=== PATIENT | male | born 1970 | race Caucasian/White ===

== ENCOUNTER 2024-01-25 03:03 | Emergency (ER) | payer OTHER, SELFPAY ==
[2024-01-25 03:06] VITALS: BP 149/91
--- NOTE | 2024-01-25 03:16 | ED.SKININJ ---
HPI-Injury
General
Chief Complaint: Skin Problem
Source: patient
Exam Limitations: none
Time Seen by Provider: 01/25/24 03:13
Nursing documentation reviewed up to this point in time: agreed with
Travel History
Have you had any contact with someone who has COVID-19?: No
Do you have any symptoms of coronavirus? Fever > 100 degrees, chills, cough, shortness of breath, sore throat, loss of taste or smell, muscle aches, or headache?: No
History of Present Illness-Injury
Initial Injury comments:
This a pleasant 53-year-old male who presents with ecchymosis on his right thigh. Patient underwent a bone graft with microvascular anastomosis by Dr. Delvalle on January 20, 2024 at [facility]. He states that he had a drain in place
which was recently removed. After the drain was removed he noticed some ecchymosis and yellowing of skin below the operation site. The operation site appears clean and intact without any evidence of cellulitis. Patient denies fever or chills. He
attempted to contact with his surgeon who was unavailable. He came to the emergency department for evaluation.
Past History
Past History
ED Past Medical History: Other (Concussion)
ED Past Surgical History: Cardiac (Cardiac catheterization 1979), Orthopedic (Cervical spine surgery 2020 right rotator cuff injury, ORIF right ankle), Urological (Right Kidney surgery to hold kidney up) and Other (Left middle finger amputation)
Social History
Tobacco: Non-smoker
Alcohol: None
Drug: None
Personal: Single
Living: alone
Employment: Not employed
Family History
Family History: Other (Noncontributory)
Phy Exam
General Physical Exam
General Presentation: well appearing
General age: appears stated age
General Skin: warm and dry
General Habitus: normal
General Hydration: appears well hydrated
Cardiovascular Exam
Cardiovascular Exam: regular rate/rhythm
Neurological Exam
Neurological Exam: alert and oriented x3
Musculoskeletal Exam
Musculoskeletal Exam: full ROM and other (ecchymosis)
Skin Exam
Skin Exam: normal color, warm/dry and other (Ecchymosis under the OpSite)
Psychiatric Exam
Psychiatric Exam: normal mood/affect
Course
Orders/Labs/Results
Orders:
Orders
01/25/24 03:16
US Periph Venous LOWER Ext RT Urgent
Comment:
Reason For Exam: eccymosis post sx
Vital Signs
Initial and Last Documented VS:
Initial Vital Signs
Temp Pulse Resp BP Pulse Ox
98.1 F 84 18 149/91 96
01/25/24 03:06 01/25/24 03:06 01/25/24 03:06 01/25/24 03:06 01/25/24 03:06
Last Documented Vital Signs
Temp Pulse Resp BP Pulse Ox
98.1 F 77 20 139/83 98
01/25/24 03:06 01/25/24 04:06 01/25/24 04:06 01/25/24 04:06 01/25/24 04:06
*Critical Care Note
Total Time (30-74mins, 75-104mins- exclusive of procedures): Not Applicable
Update Note
Update Note:
Ultrasound report showed no DVT. I feel that the bruising is a byproduct of the surgery and the ecchymosis in varying degrees of color is also from the surgery. When the drain was removed, some of the residual blood probably stayed in the leg.
Patient has good sensation in the foot. Patient to be discharged follow-up with surgery.
ED Attending Note
-
Portions of this chart may have been created with voice recognition software.� Occasional wrong word or��sound alike� substitutions may have occurred due to the inherent limitations of voice recognition software.
Discharge Plan
Departure
Patient Disposition: Home (Routine Discharge)
Date of Disposition: 01/25/24
Time of Disposition: 04:11
Patient with high blood pressure during this ER visit?: Yes
Discharge Problem:
Postoperative hematoma
Instructions: Wound Care (DC), Bleeding After Surgery, BLOOD PRESSURE
Prescriptions:
No Action
amitriptyline 10 mg Tablet
10 mg PO HS
tramadol 50 mg Tablet
50 mg PO Q4H PRN (Reason: ankle discomfort)
meloxicam 15 mg Tablet
15 mg PO DAILY
cyclobenzaprine
10 mg PO HS
Referrals:
[facility] [Outside]
Activity Restrictions/Additional Instructions:
Please follow-up with your surgeon with any questions. Return to the ER with any worsening condition.
It was a pleasure meeting you and taking part in your care. We hope for your continued healing and wellness.
Please read discharge instructions in their entirety. However, they are for general education and may not describe your exact diagnosis at discharge. Information on your ER visit and medical conditions were discussed with you along with appropriate
follow up information...
If indicated, please take your medications as instructed and indicated on discharge paperwork.
Please schedule a follow up appointment as directed. Call to schedule an appointment
Please return to the emergency department with ANY change in, persisting, or worsening of symptoms. If any of your symptoms do not improve, or persist, or become more severe within 6-12 hours, please return to the emergency department for further
care.
Please return to the emergency department if you develop a headache, neck pain/stiffness, fever greater than 100.4F, chest pain, shortness of breath, persistent nausea, vomiting, slurred speech, difficulty walking, numbness/tingling, weakness, signs
of infection or any other symptoms that are worrisome to you.
If you have any questions or concerns please do not hesitate to call the Hospital at or E-mail me directly at [email or web address]
Interventions
Interventions:
*Risk Screen - Suicide Last Done: 01/25/24 03:57
*General Assessment Last Done: 01/25/24 03:57
*Neglect/Abuse Screening Last Done: 01/25/24 03:57
ED- Fall Risk Assessment Last Done: 01/25/24 03:57
*ED COVID-19 Vaccine History Last Done: 01/25/24 03:57
*Nursing Disposition Last Done: 01/25/24 04:20
ED-Skin Assessment Last Done: 01/25/24 03:57
Discharge Date and Time
Discharge Date/Time: 01/25/24 04:39
[2024-01-25 03:25] VITALS: BMI 32.9
[2024-01-25 04:06] VITALS: BP 139/83
== END 2024-01-25 04:39 | disposition home or self-care (01) ==
LOC: EMR 03:03
PROVIDERS: EMERGENCY PHYSICIAN Student in an Organized Health Care Education/Training Program; FAMILY PHYSICIAN Nurse Practitioner Adult Health
DX: L76.32 Postprocedural hematoma of skin and subcutaneous tissue following other procedure (principal); Y83.8 Other surgical procedures as the cause of abnormal reaction of the patient, or of later complication, without mention of misadventure at the time of the procedure; I49.9 Cardiac arrhythmia, unspecified; Z95.5 Presence of coronary angioplasty implant and graft; Z87.01 Personal history of pneumonia (recurrent); Z86.16 Personal history of COVID-19; Z87.442 Personal history of urinary calculi
CPT/HCPCS: 99284; 93971

== ENCOUNTER 2024-10-09 20:05 | Emergency (ER) | payer OTHER, SELFPAY ==
[2024-10-09 20:17] VITALS: BP 156/95
[2024-10-09 20:38] LABS: % Basophils 0.8 % (0-2); % Eosinophils 3.8 % (0-6); % Immature Granulocytes 0.7 % (0-0.5); % Neutrophils 60.7 % (42.2-75.2); Absolute Basophils 0.1 10^3/uL (0-0.2); Absolute Eosinophils 0.4 10^3/uL (0-0.7); Absolute Immature Granulocytes 0.1 10^3/uL (0-0.05); Absolute Monocytes 1.4 10^3/uL (0.1-0.6); Absolute Neutrophils 6.1 10^3/uL (1.4-6.5); Hematocrit 43.5 % (39.0-52.0); Hemoglobin 14.8 g/dL (13.0-18.0); Mean Corpuscular Volume 88.1 fL (80.0-94.0); Mean Platelet Volume 10.3 fL (7.4-10.4); Nucleated Red Blood Cells % 0 % (-); Platelet Count 307 10^3/uL (130-400); Red Blood Cell Count 4.94 10^6/uL (4.70-6.10); Red Cell Dist. Width 12.5 % (11.5-14.5)
[2024-10-09 20:55] LABS: ALT (SGPT) 29 U/L (0-50); AST (SGOT) 34 U/L (17-59); Albumin 4.4 g/dl (3.5-5.0); Alkaline Phosphatase 82 U/L (38-126); Blood Urea Nitrogen 19 mg/dl (9-20); Calcium 9.7 mg/dl (8.4-10.2); Carbon Dioxide 29 mmol/L (22-30); Chloride 97 mmol/L (98-107); Glucose 103 mg/dl (70-99); Potassium 4.6 mmol/L (3.5-5.1); Sodium 139 mmol/L (135-145); Total Bilirubin 0.3 mg/dl (0.2-1.3); Total Protein 7.2 g/dl (6.3-8.2); eGFR > 60.00
[2024-10-09 22:43] VITALS: BP 139/91
[2024-10-09 22:44] VITALS: BMI 33.0
--- NOTE | 2024-10-09 23:07 | ED.GENMED ---
History of Present Illness
General
Chief Complaint: Bowel Problem
Time Seen by Provider: 10/09/24 23:07
History of Present Illness
History of Present Illness:
TIME OF INITIAL ENCOUNTER: 11:20 PM
HPI: The patient presents due to concerns for constipation from being on oxycodone from last week. He has been taking oxycodone for the past week because of posttonsillectomy pain. He has had a little bit of bleeding related to the tonsillectomy
but none currently. He did have 'a pot of coffee' earlier in the evening and then later had a bowel movement. His x-ray was obtained tonight after he had a bowel movement.
EXAM:
GENERAL: Well appearing in no distress
HEENT: Normal postoperative post tonsillectomy appearance with some mild edema and erythema as well as grayish membranes in the tonsillar
CARDIOVASCULAR: No murmurs, normal heart rate, regular rhythm, No chest wall tenderness
PULMONARY: No respiratory distress, breath sounds are clear and equal
ABDOMEN: Soft with no peritoneal signs, very mild diffuse tenderness
NEUROLOGIC: Excellent strength all extremities, no coordination deficits
PSYCHIATRIC: Appropriate mental status, normal insight and judgement
EXTREMITIES: Nontender, no edema, moves all extremities equally
SKIN: No rash, no lesions
NUMBER AND COMPLEXITY OF PROBLEMS ADDRESSED AT THE ENCOUNTER
� Chronic conditions affecting care: No significant chronic medical issues
� Acute Exacerbation and/or Progression of Chronic Illness: This is an acute problem
� Differential Diagnosis includes: Opioid-induced constipation, constipation
AMOUNT AND/OR COMPLEXITY OF DATA TO BE REVIEWED AND ANALYZED
� I performed an independent evaluation of and my interpretation is:
EKG:
CT:
X-rays: Surgical clips noted in the right upper quadrant, increased amount of stool noted without evidence for obstruction
Laboratory Studies: White count 10.0, hemoglobin 14.6, chemistries unremarkable
Other:
� Review of other/old records: I reviewed records, the patient was here with a postoperative hematoma in January 2024
� Clinical information was obtained by an independent historian: None needed
� Prescriptions/Medications Considered but not given:
� Further testing considered but not performed:
RISK OF COMPLICATIONS AND/OR MORBIDITY OR MORTALITY OF PATIENT MANAGEMENT
� Social determinants of health affecting care: Lives at home
� Discussion with other providers:
� Escalation of care including admission/observation vs risk of discharge considered: The patient did have a bowel movement but x-ray does show an increased amount of stool. Recommending MiraLAX and/or magnesium citrate.
ANY OTHER UPDATES:
Past History
Past History
ED Past Medical History: Other (Concussion)
ED Past Surgical History: Cardiac (Cardiac catheterization 1979), Orthopedic (Cervical spine surgery 2020 right rotator cuff injury, ORIF right ankle), Urological (Right Kidney surgery to hold kidney up) and Other (Left middle finger amputation)
Social History
Tobacco: Non-smoker
Alcohol: None
Drug: None
Personal: Single
Living: alone
Employment: Not employed
Family History
Family History: Other (Noncontributory)
Phy Exam
Physical Exam
Physical Exam:
See HPI
Course
Orders/Labs/Results
Orders:
Orders
10/09/24 20:20
CR Obstruct Series W/pa Chest Urgent
Comment:
Reason For Exam: constipation
10/09/24 20:24
Complete Blood Count/With Diff Urgent
Comprehensive Metabolic Panel Urgent
Abnormal Lab Results
10/09/24
20:24
Abs Immat Gran (auto) 0.1 H 10^3/uL
(0-0.05)
Absolute Monos (auto) 1.4 H 10^3/uL
(0.1-0.6)
Immature Gran % 0.7 H %
(0-0.5)
Lymphocytes % 20.0 L %
(20.5-51.1)
Monocytes % 14.0 H %
(1.7-9.3)
Chloride 97 L mmol/L
(98-107)
Glucose 103 H mg/dl
(70-99)
10/09/24 20:24
10/09/24 20:24
Vital Signs
Initial and Last Documented VS:
Initial Vital Signs
Temp Pulse Resp BP Pulse Ox
36.7 C 77 18 156/95 97
10/09/24 20:17 10/09/24 20:17 10/09/24 20:17 10/09/24 20:17 10/09/24 20:17
Last Documented Vital Signs
Temp Pulse Resp BP Pulse Ox
36.7 C 77 18 139/91 95
10/09/24 20:17 10/09/24 20:17 10/09/24 20:17 10/09/24 22:43 10/09/24 22:45
*Critical Care Note
Total Time (30-74mins, 75-104mins- exclusive of procedures): Not Applicable
ED Attending Note
-
Portions of this chart may have been created with voice recognition software.� Occasional wrong word or��sound alike� substitutions may have occurred due to the inherent limitations of voice recognition software.
Discharge Plan
Departure
Prescriptions:
No Action
amitriptyline 10 mg Tablet
10 mg PO HS
tramadol 50 mg Tablet
50 mg PO Q4H PRN (Reason: ankle discomfort)
meloxicam 15 mg Tablet
15 mg PO DAILY
cyclobenzaprine
10 mg PO HS
Referrals:
Chelsi De Los Santos NP [Family Provider] -
Interventions
Interventions:
*Risk Screen - Suicide Last Done: 10/09/24 22:45
*General Assessment Last Done: 10/09/24 22:45
*Neglect/Abuse Screening Last Done: 10/09/24 22:45
*ED COVID-19 Vaccine History Last Done: 10/09/24 22:45
Discharge Date and Time
Print Language: KAZAKH
== END 2024-10-09 23:57 | disposition home or self-care (01) ==
LOC: EMR 20:05
PROVIDERS: Emergency Medicine; EMERGENCY PHYSICIAN Emergency Medicine; FAMILY PHYSICIAN Nurse Practitioner Adult Health
DX: K59.03 Drug induced constipation (principal); T40.2X5A Adverse effect of other opioids, initial encounter
CPT/HCPCS: 99283; 74022; 80053; 85025